=== PATIENT | female | born 1990 | race Caucasian/White ===

== ENCOUNTER 2018-05-12 19:41 | Emergency (ER) | END 2018-05-12 20:21 | disposition home or self-care (01) | DX: L73.2 Hidradenitis suppurativa (principal); J45.909 Unspecified asthma, uncomplicated ==

== ENCOUNTER 2019-05-04 19:16 | Inpatient (IN) | payer MEDICAID ==
[~2019-05-04] VITALS: Ht 165.1 cm; Wt 93.4 kg
[~2019-05-04 19:16] MED LIST: ALBU8HFA4 PO; MONT10TA22 NG; PANT40TA2 PO; PRED2.5T PO; PRED20TA PO
[2019-05-04] MEDS ORDERED: IV NORMAL SALINE 1000 ML BAG IV ONE (19:45)
[2019-05-04] MEDS ORDERED: AZITHROMYCIN 250 MG TABLET PO ONE (19:45)
[2019-05-04] MEDS ORDERED: CEFTRIAXONE 1 G in IV DEXTROSE 5% 50 ML IV ONE (19:45)
[2019-05-04] MEDS ORDERED: CEFTRIAXONE 1 G VIAL ONE (19:56)
[2019-05-04] MEDS ORDERED: AZITHROMYCIN 250 MG TABLET ONE (19:57)
[2019-05-04] MEDS ORDERED: methylPREDNISolone SOD SUCC 125 MG/2 ML VIAL ONE (19:58)
[2019-05-04] MEDS ORDERED: IPRATROPIUM BROMIDE 0.5 MG/2.5 ML NEBU NEB ONE (20:00)
[2019-05-04] MEDS ORDERED: ALBUTEROL SULFATE 2.5 MG/3 ML NEBU NEB ONE (20:00)
[2019-05-04] MEDS ORDERED: methylPREDNISolone SOD SUCC 125 MG/2 ML VIAL IV ONE (20:00)
[2019-05-04 20:08] LABS: BASOPHILS % (AUTO) 0.8 % (0.0-2.0); EOSINOPHILS # (AUTO) 0.1 K/uL (0.0-0.7); EOSINOPHILS % (AUTO) 2.2 % (0.0-7.0); HEMATOCRIT 38.1 % (31.2-41.9); HEMOGLOBIN 12.5 g/dL (10.9-14.3); LYMPHOCYTES # (AUTO) 0.4 K/uL (20.0-40.0); LYMPHOCYTES % (AUTO) 5.8 % (20.5-51.5); MEAN CORPUSCULAR HEMOGLOBIN 28.2 uug (24.7-32.8); MEAN CORPUSCULAR HGB CONC 33 g/dL (32.3-35.6); MEAN CORPUSCULAR VOLUME 85.8 fL (75.5-95.3); MONOCYTES # (AUTO) 0.9 K/uL (2.0-10.0); MONOCYTES % (AUTO) 13.8 % (0.0-11.0); NEUTROPHILS # (AUTO) 4.9 K/uL (1.8-8.9); NEUTROPHILS % (AUTO) 77.4 % (38.5-71.5); PLATELET COUNT (AUTO) 223 K/uL (179-408); RED BLOOD CELL COUNT(AUTO) 4.44 MIL/uL (3.63-4.92); WHITE BLOOD COUNT (AUTO) 6.3 K/uL (3.8-11.8)
[2019-05-04 20:19] LABS: CREATININE 1.1 mg/dL (0.6-1.3); POTASSIUM 3.5 mmol/L (3.5-5.1)
[2019-05-04] MEDS ORDERED: ALBUTEROL SULFATE 2.5 MG/3 ML NEBU ONE (20:28)
[2019-05-04] MEDS ORDERED: IPRATROPIUM BROMIDE 0.5 MG/2.5 ML NEBU ONE (20:28)
[2019-05-04 20:31] LABS: BILIRUBIN,DIRECT 0.1 mg/dL (0.0-0.2); BILIRUBIN,TOTAL 0.3 mg/dL (0.2-1.0); TOTAL PROTEIN, SERUM 8.4 g/dL (6.4-8.2)
[2019-05-04] MEDS ORDERED: ACETAMINOPHEN ES 500 MG TABLET ONE (21:12)
[2019-05-04] MEDS ORDERED: ACETAMINOPHEN 325 MG TABLET PO ONE (21:15)
[2019-05-04 21:20] LABS: *BILIRUBIN,URIN NEGATIVE (NEGATIVE); *BLOOD, URINE 1+ (NEGATIVE); *CLARITY,URINE CLOUDY (CLEAR); *COLOR,URINE YELLOW (YELLOW); *KETONES,URINE NEGATIVE (NEGATIVE); *UROBILINOGEN,URINE 0.2 E.U./dl (NORMAL); LEUKOCYTE ESTERASE ,URINE NEGATIVE (NEGATIVE); NITRITE, URINE NEGATIVE (NEGATIVE); PH,URINE 8.5 (5.0-8.0); UGLUCOSE NEGATIVE (NEGATIVE)
[2019-05-04 21:35] LABS: BACTERIA,URINE NONE SEEN /HPF (NONE SEEN); SQUAMOUS EPITHELIAL CELL,UR MODERATE /HPF (NONE SEEN); WBC,URINE 0-3 /HPF (0-3)
[2019-05-04 21:36] LABS: MUCUS,URINE FEW /LPF (0-FEW); URINE AMORPHOUS PHOSPHATES MANY /HPF
[2019-05-04 22:27] VITALS: BP 113/63
[2019-05-04] MEDS ORDERED: ONDANSETRON 4 MG/2 ML VIAL IV PRN (23:15)
[2019-05-04] MEDS ORDERED: MORPHINE SULFATE 2 MG/1 ML DISP.SYRIN IV PRN (23:15)
[2019-05-05] MEDS: ALBUTEROL SULFATE 2.5 MG/3 ML NEBU NEB SCH ×7 (00:19→23:30)
[2019-05-05 00:54] VITALS: BP 106/57
[2019-05-05 04:57] VITALS: BP 125/69
[2019-05-05] MEDS ORDERED: methylPREDNISolone SOD SUCC 40 MG/ML VIAL IV SCH (06:00)
[2019-05-05 06:41] LABS: BASOPHILS % (AUTO) 0.1 % (0.0-2.0); HEMATOCRIT 35.1 % (31.2-41.9); HEMOGLOBIN 11.5 g/dL (10.9-14.3); LYMPHOCYTES # (AUTO) 0.4 K/uL (20.0-40.0); LYMPHOCYTES % (AUTO) 6.7 % (20.5-51.5); MEAN CORPUSCULAR HEMOGLOBIN 27.6 uug (24.7-32.8); MEAN CORPUSCULAR HGB CONC 33 g/dL (32.3-35.6); MEAN CORPUSCULAR VOLUME 84.1 fL (75.5-95.3); MONOCYTES # (AUTO) 0.2 K/uL (2.0-10.0); MONOCYTES % (AUTO) 3.4 % (0.0-11.0); NEUTROPHILS # (AUTO) 5.9 K/uL (1.8-8.9); NEUTROPHILS % (AUTO) 89.8 % (38.5-71.5); PLATELET COUNT (AUTO) 216 K/uL (179-408); RED BLOOD CELL COUNT(AUTO) 4.18 MIL/uL (3.63-4.92); WHITE BLOOD COUNT (AUTO) 6.6 K/uL (3.8-11.8)
[2019-05-05 07:09] LABS: BILIRUBIN,TOTAL 0.2 mg/dL (0.2-1.0); CREATININE 0.8 mg/dL (0.6-1.3); MAGNESIUM 1.9 mg/dL (1.8-2.4); PHOSPHOROUS 3.3 mg/dL (2.5-4.9); POTASSIUM 3.7 mmol/L (3.5-5.1); TOTAL PROTEIN, SERUM 7.6 g/dL (6.4-8.2)
[2019-05-05] MEDS: ACETAMINOPHEN 325 MG TABLET PO PRN (09:36)
[2019-05-05] MEDS: OSELTAMIVIR PHOSPHATE 75 MG CAPSULE PO SCH ×2 (11:59→21:04)
[2019-05-05] MEDS: AZITHROMYCIN 250 MG TABLET PO SCH (12:00)
[2019-05-05 12:08] VITALS: BP 117/68
[2019-05-05 16:22] VITALS: BP 115/57
[2019-05-05] MEDS: methylPREDNISolone SOD SUCC 40 MG/ML VIAL IV SCH (17:25)
[2019-05-05 20:06] VITALS: BP 127/63
[2019-05-05 23:30] VITALS: BP 99/60
[2019-05-06] MEDS: ALBUTEROL SULFATE 2.5 MG/3 ML NEBU NEB SCH ×3 (03:30→11:11)
[2019-05-06 03:40] VITALS: BP 106/66
[2019-05-06 07:02] LABS: CREATININE 0.8 mg/dL (0.6-1.3)
[2019-05-06 07:25] LABS: BASOPHILS % (AUTO) 0.1 % (0.0-2.0); HEMATOCRIT 36.3 % (31.2-41.9); HEMOGLOBIN 11.8 g/dL (10.9-14.3); LYMPHOCYTES # (AUTO) 1.5 K/uL (20.0-40.0); LYMPHOCYTES % (AUTO) 15.8 % (20.5-51.5); MEAN CORPUSCULAR HEMOGLOBIN 27.9 uug (24.7-32.8); MEAN CORPUSCULAR HGB CONC 33 g/dL (32.3-35.6); MONOCYTES # (AUTO) 1.3 K/uL (2.0-10.0); MONOCYTES % (AUTO) 13.5 % (0.0-11.0); NEUTROPHILS # (AUTO) 6.8 K/uL (1.8-8.9); NEUTROPHILS % (AUTO) 70.6 % (38.5-71.5); PLATELET COUNT (AUTO) 218 K/uL (179-408); RED BLOOD CELL COUNT(AUTO) 4.22 MIL/uL (3.63-4.92)
[2019-05-06 07:38] LABS: WHITE BLOOD COUNT (AUTO) 9.6 K/uL (3.8-11.8)
[2019-05-06] MEDS: methylPREDNISolone SOD SUCC 40 MG/ML VIAL IV SCH (08:55)
[2019-05-06] MEDS: OSELTAMIVIR PHOSPHATE 75 MG CAPSULE PO SCH (08:55)
[2019-05-06] MEDS ORDERED: METH4TAB3 PO (09:29)
[2019-05-06] MEDS ORDERED: BUDE10.22 INH (09:29)
[2019-05-06] MEDS ORDERED: AZIT500T PO (09:29)
[2019-05-06] MEDS ORDERED: OSEL75CA PO (09:29)
[2019-05-06 11:30] VITALS: BP 103/53
[2019-05-06] MEDS: AZITHROMYCIN 250 MG TABLET PO SCH (12:32)
[2019-05-06] MEDS: ACETAMINOPHEN 325 MG TABLET PO PRN (13:21)
== END 2019-05-06 13:40 | disposition home or self-care (01) | DRG 720 ==
LOC: ER 19:23 → TELE3 21:51 → MEDSURG3 05-06 10:55
PROVIDERS: ADMIT Internal Medicine; ATTEND Nurse Practitioner Acute Care
DX: A41.89 Other specified sepsis (principal); J45.901 Unspecified asthma with (acute) exacerbation; J10.1 Influenza due to other identified influenza virus with other respiratory manifestations; J20.8 Acute bronchitis due to other specified organisms
CPT/HCPCS: 36415; 70030-TC; 71045; 83605; 83735; 84100; 85025; 85730; 87040; 87086; 87400; 93005; 94640; 94664; A4663; A9150; G0378; J0696; J2920; J2930; J3590; J7030; J7060; Q0144

== ENCOUNTER 2022-04-25 18:45 | Emergency (ER) | payer MEDICAID, OTHER ==
[~2022-04-25] VITALS: Ht 165.1 cm; Wt 86.2 kg
[~2022-04-25 18:45] MED LIST changes: +AZIT500T PO; +BUDE10.22 INH; +METH4TAB3 PO; -MONT10TA22 NG; +OSEL75CA PO; -PANT40TA2 PO; -PRED2.5T PO; -PRED20TA PO
--- NOTE | 2022-04-25 21:32 | NUR ---
CALLED PATIENT TO BE PLACED IN ROOM BUT WAS NOT PRESENT IN THE WAITING ROOM OR OUTSIDE OF ER.
--- NOTE | 2022-04-25 21:45 | NUR ---
PATIENT WAS CALLED TO BE PLACED IN ROOM BUT WAS NOT PRESENT IN THE WAITING ROOM OR OUTSIDE OF ER.
--- NOTE | 2022-04-25 22:23 | NUR ---
PATIENT WAS CALLED TO BE TRIAGED BUT WAS NOT PRESENT IN THE WAITING ROOM OR OUTSIDE OF ER. PATIENT WAS TRIAGED BUT NOT SEEN BY ERMD.
== END 2022-04-25 23:30 | disposition left against medical advice (07) ==
LOC: ER 19:42
DX: Z53.21 Procedure and treatment not carried out due to patient leaving prior to being seen by health care provider (principal)

== ENCOUNTER 2022-12-28 07:18 | Emergency (ER) | payer OTHER ==
[~2022-12-28] VITALS: Ht 154.9 cm; Wt 95.3 kg
[2022-12-28] MEDS ORDERED: IBUP-1955 PO (07:52)
[2022-12-28] MEDS ORDERED: BENZ-13 PO (07:52)
[2022-12-28] MEDS ORDERED: ALBU18HF2 INH (07:54)
[2022-12-28] MEDS ORDERED: KETOROLAC TROMETHAMINE 15 MG INJ ONE (07:57)
[2022-12-28] MEDS: KETOROLAC TROMETHAMINE 15 MG INJ IM ONE (08:06)
[2022-12-28 08:16] VITALS: BP 120/70; TEMP 98; O2SAT 99
== END 2022-12-28 08:05 | disposition home or self-care (01) ==
LOC: ER 07:18
DX: J06.9 Acute upper respiratory infection, unspecified (principal); B97.89 Other viral agents as the cause of diseases classified elsewhere; J02.9 Acute pharyngitis, unspecified; J45.909 Unspecified asthma, uncomplicated; Z79.2 Long term (current) use of antibiotics; Z79.899 Other long term (current) drug therapy; Z20.822 Contact with and (suspected) exposure to COVID-19
CPT/HCPCS: 99283; 87635; 36415; 96372; C9803; J1885; A4663